=== PATIENT | male | born 1950 | race Caucasian/White ===

== ENCOUNTER → 2017-09-04 | Outpatient (CLI) | payer BC, MEDICARE ==
[~2017-09-04] MED LIST: HYDRALAZINE 10M10 MG PO; IBUPROFEN 600600 M1 PO; KEFLEX500 MG PO; LEVAQUIN 500 M500 M1; LISINOPRIL20 MG; LOPRESSOR 50 MG50 M1; MULTIVITAMINS; SIMVASTATIN40 MG; SPIRONOLACT/HCT1 TAB
== END ==
LOC: M.LAB 01:47
DX: Z79.899 Other long term (current) drug therapy (principal)

== ENCOUNTER → 2018-11-12 | Outpatient (CLI) | payer OTHER, MEDICARE | LOC: M.LAB 05:04 | DX: E87.6 Hypokalemia (principal) ==

== ENCOUNTER → 2020-12-06 | Outpatient (CLI) | payer OTHER, MEDICARE | LOC: M.LAB 05:28 | PROVIDERS: ATTEND Anesthesiology | DX: E87.6 Hypokalemia (principal) ==